=== PATIENT | female | born 1965 | race Caucasian/White ===

== ENCOUNTER → 2019-02-17 | Outpatient (CLI) | payer BC ==
[2015-11-26 11:00] VITALS: BP 112/77
--- NOTE | 2019-02-17 12:09 | RAD ---
MR#: [id number] Date of Study: 02/17/2019 Ordering Physician: MORENA GREENBERG, Referring Physician: DARIUS GLEZ Tech: Yan Simmons RT (R) (N) APPROVED REPORT Test Type: Exercise Stress Nurse/Tech: Jolly Engel R.N. Test Indications: chest pain Cardiac History: Family history Medications: See Electronic Medical Record Medical History: See Electronic Medical Record Resting ECG: NSR Resting Heart Rate: 63 bpm Resting Blood Pressure: 102/59mmHg Pretest Chest Pain: No chest pain Nurse/Tech Notes S1S2, lungs sound clear Consent: The procedure was explained to the patient in lay terms. Informed consent was witnessed. Dewey eout was entered into [employer]. History and Stress Test performed by Jolly Engel R.N. Stress Symptoms Dyspnea, cheat discomfort ended about 1 min after rest POST EXERCISE Reason for Termination: Reached target heart rate Target HR: 141 Max HR: 160 bpm 96% of Maximum Predicted HR: 166 bpm Exercise duration: 8 min min:sec, 3 Stage Max Blood Pressure: 128/78mmHg Blood Pressure response to exercise: Normal blood pressure response during stress. Arrhythmia: No. ST Change: No. INTERPRETATION Stress EKG Conclusion: The resting EKG showed a sinus rhythm with nonspecific ST-T wave changes. The stress EKG showed mild ST changes that are not diagnostic of ischemia. No EKG evidence of stressed induced ischemia. Imaging Protocol IMAGE PROTOCOL: Rest Tc-99m/stress Tc-99m 1 day Rest: Stress: Viability: Radiopharm.Tc99m HhiesfbkrPj45d Sestamibi Quzy80jLf 30.5mCi Duration 15min. 15min. Img Date 02/17/2019 02/17/2019 Inj-Img [id number]. 60min. Rest Admin Site:IV - Right AntecubitalAdministrator:RT Cheyanne (R)(N) Stress Admin Site: IV - Right AntecubitalAdministrator: RT Cheyanne (R)(N) STRESS DATA End Diast. Vol.58.0mlLVEDV index BSA35.0ml End Syst. Vol.8.0mlLVESV index BSA5.0ml Myocardial Xsys955.0gEject. Vhrtbese83.0% Stress Scores Regional WT0.00Summed WT0.00 Regional WM0.00Summed WM0.00 LV Perfusion The stress scans showed no significant defects. The rest scans showed no significant defects. Nuclear imaging shows no reversible ischemia or infarct. Wall Motion LV systolic function is normal with no regional wall motion abnormalities and an ejection fraction of greater than 70%. LV Perf. Quant 17 Seg. SSS0.00 17 Seg. SRS0.00 17 Seg. SDS0.00 Stress Defect Extent (% LAD)0.00Rest Defect Extent (% LAD)0.00Rev. Defect Extent (% LAD)0.00 Stress Defect Extent (% LCX) 0.00Rest Defect Extent (% LCX)0.00Rev. Defect Extent (% LCX)0.00 Stress Defect Extent (% RCA)0.00Rest Defect Extent (% RCA)0.00Rev. Defect Extent (% RCA)0.00 Stress Defect Extent (% GONZALES)0.00Rest Defect Extent (% GONZALES)0.00Rev. Defect Extent (% GONZALES)0.00 Conclusion 1. Good exercise tolerance. 2. Episodes of chest pain with exertion. 3. No EKG evidence of stressed induced ischemia. 4. Nuclear imaging shows no reversible ischemia or infarct. 5. Normal left ventricular systolic function with an ejection fraction of greater than 70%. 6. Low to moderately low risk Lexiscan nuclear stress test. Signed by : Morena Greenberg MD Electronically Approved : 02/17/2019 12:08:57
== END | disposition home or self-care (01) ==
LOC: NM 07:57
PROVIDERS: ATTEND Internal Medicine Cardiovascular Disease
DX: R07.89 Other chest pain (principal)
CPT/HCPCS: 78452; 93017; A9500